=== PATIENT | male | born 1985 | race Caucasian/White ===

== ENCOUNTER 2016-09-24 23:54 | Emergency (ER) | payer SELFPAY ==
--- NOTE | 2016-09-25 01:06 | ED ORDER SUMMARY ---
..... Patient: ITZ VALLEJO OrderSheet [facility] VisitID: [id number] [address] [place] [address] 31y, M Registration Date/Time: 09/24/2016 ORDER SHEET Weight: 113.3 kg (stated) Allergies: No Known Drug Allergy GENERAL ORDERS: MEDICATION ORDERS: Lidocaine Injection 2 % (soln) (NOW, place at bedside) (00:47 09/25/2016 Anh FloresNCristofer verbal order read back to Laura KELLY) (0:47 JDeSanam R.N.) Tdap IM 0.5 mL (NOW, per protocol) (01:04 09/25/2016 Anh Davis verbal order read back to Laura KELLY) (Ack 1:04 JDeKaleya R.N.) (1:14 JDeElena R.N.) IV FLUIDS: ORDER SHEET NOTES: [Electronically signed by Nitish Pretty R.N. (09/25/2016)] [Electronically signed by Joaquin Lopez MD (23:35 09/27/2016)] [Electronically locked/signed by Nitish Pretty R.N. (09/25/2016)]
--- NOTE | 2016-09-25 01:06 | ED NURSING NOTES ---
Clinical Report - Nurses [facility] [address] [place] [address] 09/24/2016 23:55 Patient: ITZ VALLEJO TRIAGE Triage time 00:03. Acuity: LEVEL 4. Chief Complaint: INJURY TO THE LEFT FOREARM. Alert. No acute distress. SEPSIS SCREEN: Sepsis Screen: negative. Negative (no infection suspected/documented). --00:07 Nitish Pretty R.N. 00:03 09/25/16. BP: 136/82 (regular adult cuff) taken on the right arm, via an automated monitor, while lying. HR: 105 (normal rate). RR: 16 (regular, unlabored and normal). O2 saturation: 96% on room air. Temp: 99.3 F (oral). Pain level now: 10/14. --00:07 Nitish Pretty R.N. Weight: 113.3 kg stated. Height/Length: 67 inches Per Patient. BMI: 39.2. --00:04 Nitish Pretty R.N. Medications None. --00:04 Nitish Pretty R.N. Medication/allergy information source: the patient. --00:07 Nitish Pretty R.N. Allergies No Known Drug Allergy. --00:04 Nitish Pretty R.N. History Arrived by private vehicle. Historian: patient. Accompanied by friend. Primary physician (None). This occurred just prior to arrival. He sustained a laceration from a knife (Working on car, started cutting toward him, cut arm open.). 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 PAST MEDICAL HX: Tetanus immunization status is not up-to-date. SOCIAL HX: Current every day light tobacco smoker (cigarette)- less than 1/2 a pack per day. History of occasional drug use: marijuana. No alcohol use. He has not traveled outside the [place] The patient was not exposed to MRSA. ABUSE ASSESSMENT: Abuse assessment: The patient was asked "Do you feel safe in your home?" and "Has anyone hurt you or threatened to hurt you?". No report of abuse. SELF HARM ASSESSMENT: A self harm assessment was performed. The patient answered "no" to the question "Do you have thoughts of harming or killing yourself?" and "Have you recently had thoughts about harming or killing others?". FALL RISK ASSESSMENT: Fall risk assessment completed. No fall risk identified. NUTRITIONAL RISK ASSESSMENT: The nutritional risk assessment revealed no deficiencies. LEARNING NEEDS ASSESSMENT: The learning needs assessment revealed no barriers. FUNCTIONAL ASSESSMENT: Functional assessment performed: wears glasses- this visual impairment is an ongoing problem. SKIN INTEGRITY ASSESSMENT: Skin integrity risk assessment completed. No skin integrity risk identified. --00:07 Nitish Pretty R.N. PROBLEMS: Irritable Bowel Syndrome. --00:05 Nitish Pretty R.N. Assessment GENERAL / NEURO / PSYCH: Alert. Oriented X 4. Appears in no acute distress. Chelsea Coma Scale: 15- eyes open spontaneously (4); best verbal response- oriented x 4 (5); best motor response- obeys commands (6). Patient appears calm and cooperative. RESPIRATORY: No respiratory distress. Respirations not labored. SKIN: Skin is warm and dry. --00:07 Nitish Pretty R.N. Interventions ID band on patient. To treatment room. No allergy band on patient. --00:07 Nitish Pretty R.N. PHYSICAL ASSESSMENT Ambulatory to room. GENERAL / NEURO / PSYCH: Oriented X 4. Alert. Appears in no acute distress. RESPIRATORY: No respiratory distress. Respirations not labored. EXTREMITIES: Capillary refill is less than 2 seconds in the extremities. Extremity pulses are within normal limits. Neuro-vascular status intact to the extremity. Left forearm: tenderness, swelling and deep 2.5 cm laceration with controlled bleeding. SKIN: Skin intact. Skin is warm and dry. --00:09 Nitish Pretty R.N. NURSING PROGRESS NOTES The initial plan of care for this patient has been created This plan of care was discussed with the patient. Reassurance given to the patient. Two patient identifiers checked. Call light placed in reach. Side rails up x 1. Bed placed in lowest position. Brakes of bed on. Patient ready for evaluation- ED physician and PLUGGER notified. --00:08 Nitish Pretty R.N. 00:47 09/25/2016 Lidocaine Injection Injectable 2 % given. Allergies verified and confirmed 5 rights. (Administered by Dr. Lopez). --00:47 Nitish Pretty R.N. 01:14 09/25/2016 TDAP IM 0.5 mL given. (Lot#: [id number], expiration date: 02/11/2018). Given in the left deltoid. Allergies verified and confirmed 5 rights. Vaccine information statement provided to the patient. --01:14 Nitish Pretty R.N. 01:14 09/25/2016 Lidocaine Injection Response: no adverse reaction. --01:14 Nitish Pretty R.N. WOUND REPAIR: Wound repair performed by ED physician. The wound is located on the left forearm. Preparation: with 2% lidocaine. Procedure: wound repaired with sutures. Post-procedure: he was stable, no complications, bleeding controlled and neuro-vascular status intact distal to wound. Applied clean dressing consisting of 4x4 gauze, following the application of antibiotic ointment (bacitracin). Secured with tape and kerlix. --01:25 Nitish Pretty R.N. DISPOSITION / DISCHARGE Departure time: 01:15. --01:15 Nitish Pretty R.N. 01:15. Condition at departure: stable. The goals identified in the patient's plan of care were met. No learning barriers present. Discharge instructions provided and reviewed with the patient. Reviewed referral to a primary care physician (Pamphlet anthony MARTINEZ given to pt for f/u and stich removal.). Patient verbalized understanding. Written instructions provided in Burundian. ( Itz verbalizes understanding of all d/c instructions including wound care and f/u for wound check. He has no questions and voices no concerns at this time.). The patient was discharged by the physician. He was discharged home and accompanied by hvac manager. He left the Emergency Department ambulatory and via private vehicle. Sorting Supervisor driving. CHELSEA COMA SCORE: Chelsea Coma Scale: 15- eyes open spontaneously (4); best verbal response- oriented x 4 (5); best motor response- obeys commands (6). --01:27 Ntiish Pretty R.N. 01:10 09/25/16. BP: 134/81 (regular adult cuff) taken on the left arm, via an automated monitor, while lying. HR: 97 (normal rate). RR: 14 (regular, unlabored and normal). O2 saturation: 98% on room air. Temp: 98.3 F (oral). Pain level now: 07/14. --01:27 Nitish Pretty R.N. Locked/Released at 09/25/2016 1:28 by Nitish Pretty R.N.
--- NOTE | 2016-09-25 01:06 | ED CLINICAL REPORT ---
Clinical Report - Physicians/Mid Levels [facility] [address] [place] [address] 09/24/2016 23:55 Patient: ITZ VALLEJO Time Seen: 00:28 Sep 25 2016. Arrived- By private vehicle. Historian- patient. CPT: ER phys charges level 3 plus (#[id number]). 2.6-7.5 cm simple scalp, neck,A (#[id number]). HISTORY OF PRESENT ILLNESS Chief Complaint: Injury to the left arm and Chief Complaint- This occurred just prior to arrival. He sustained a laceration from a knife (Working on car, started cutting toward him, cut arm open.). The injury happened just prior to arrival. Occurred at home. The patient sustained a laceration from a knife. Patient is experiencing moderate pain. No other injury. REVIEW OF SYSTEMS The patient sustained a laceration. No swelling, tingling, numbness, weakness or suspected foreign body. All systems otherwise negative, except as recorded above. PAST HISTORY Irritable Bowel Syndrome. Medications: None. Allergies: No Known Drug Allergy. SOCIAL HISTORY Heavy tobacco smoker (cigarette)- less than 1 pack per day. History of drug use: marijuana. No alcohol use. ADDITIONAL NOTES The nursing notes have been reviewed. PHYSICAL EXAM Vital Signs: 09/25/2016 00:03 BP: 136/82. HR: 105. RR: 16. O2 saturation: 96%. Temp: 99.3 F. Pain level now: 6/10. Appearance: Alert. Skin: Skin warm. Normal skin color. Extremities: Left forearm: moderate tenderness and subcutaneous laceration located in the mid forearm. SEE LACERATION PROCEDURE NOTE. Neurovascular intact distally. No deformity. Extremities otherwise negative. Neuro, Vascular and Tendons: Vascular status intact. Sensation intact. Motor intact. Tendon function intact. Neuro: Oriented X 3. No motor deficit. No sensory deficit. Reflexes normal. PROGRESS AND PROCEDURES Laceration Repair: Location: left forearm. Length: 7 cm. Complexity: simple (local anesthesia used and sutured). Wound depth/shape- subcutaneous and linear. Wound is clean. Distal neuro/vascular/tendon status normal. Tendon examined. No tendon deficit or laceration. Local anesthesia provided using 2% lidocaine with bicarb. Prepped with Hibiclens. Wound cleansed and irrigated extensively with normal saline. Closure of skin: interrupted 4-0 (10 sutures). Post-procedure: he is stable and there are no complications. Bleeding is controlled and neuro-vascular status is intact distal to the wound. Dressing applied. Tetanus immunization given. Estimated blood loss: 3 mL. Patient/family counseled. Disposition: Discharged. Condition: stable and improved. CLINICAL IMPRESSION Single deep laceration to the left forearm.No foreign body present. INSTRUCTIONS Protect wound and keep wound area clean. Change dressing twice daily. Keep wounds dry. You may wash wounds briefly, then dry. Apply neosporin twice daily. Sutures should be removed in ten days. Warnings: TETANUS: You were given a tetanus shot during your visit. Make a note for future reference. GENERAL WARNINGS: Return or contact your physician immediately if your condition worsens or changes unexpectedly, if not improving as expected, or if other problems arise. OTC Medications: Acetaminophen (available over the counter): take according to label instructions. Follow-up: Follow up with your doctor in ten days for suture removal. Call for an appointment. Understanding of the discharge instructions verbalized by patient. Discharge instructions reviewed with and understanding was verbalized by neighbor. (Electronically signed by Joaquin Lopez MD 09/27/2016 23:35)
--- NOTE | 2016-09-25 01:06 | ED NURSING NOTES ---
Clinical Report - Nurses [facility] [address] [place] [address] 09/24/2016 23:55 Patient: ITZ VALLEJO TRIAGE Triage time 00:03. Acuity: LEVEL 4. Chief Complaint: INJURY TO THE LEFT FOREARM. Alert. No acute distress. SEPSIS SCREEN: Sepsis Screen: negative. Negative (no infection suspected/documented). --00:07 Nitish Pretty R.N. 00:03 09/25/16. BP: 136/82 (regular adult cuff) taken on the right arm, via an automated monitor, while lying. HR: 105 (normal rate). RR: 16 (regular, unlabored and normal). O2 saturation: 96% on room air. Temp: 99.3 F (oral). Pain level now: 10/14. --00:07 Nitish Pretty R.N. Weight: 113.3 kg stated. Height/Length: 67 inches Per Patient. BMI: 39.2. --00:04 Nitish Pretty R.N. Medications None. --00:04 Nitish Pretty R.N. Medication/allergy information source: the patient. --00:07 Nitish Pretty R.N. Allergies No Known Drug Allergy. --00:04 Nitish Pretty R.N. History Arrived by private vehicle. Historian: patient. Accompanied by friend. Primary physician (None). This occurred just prior to arrival. He sustained a laceration from a knife (Working on car, started cutting toward him, cut arm open.). 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 PAST MEDICAL HX: Tetanus immunization status is not up-to-date. SOCIAL HX: Current every day light tobacco smoker (cigarette)- less than 1/2 a pack per day. History of occasional drug use: marijuana. No alcohol use. He has not traveled outside the [place] The patient was not exposed to MRSA. ABUSE ASSESSMENT: Abuse assessment: The patient was asked "Do you feel safe in your home?" and "Has anyone hurt you or threatened to hurt you?". No report of abuse. SELF HARM ASSESSMENT: A self harm assessment was performed. The patient answered "no" to the question "Do you have thoughts of harming or killing yourself?" and "Have you recently had thoughts about harming or killing others?". FALL RISK ASSESSMENT: Fall risk assessment completed. No fall risk identified. NUTRITIONAL RISK ASSESSMENT: The nutritional risk assessment revealed no deficiencies. LEARNING NEEDS ASSESSMENT: The learning needs assessment revealed no barriers. FUNCTIONAL ASSESSMENT: Functional assessment performed: wears glasses- this visual impairment is an ongoing problem. SKIN INTEGRITY ASSESSMENT: Skin integrity risk assessment completed. No skin integrity risk identified. --00:07 Nitish Pretty R.N. PROBLEMS: Irritable Bowel Syndrome. --00:05 Nitish Pretty R.N. Assessment GENERAL / NEURO / PSYCH: Alert. Oriented X 4. Appears in no acute distress. Chelsea Coma Scale: 15- eyes open spontaneously (4); best verbal response- oriented x 4 (5); best motor response- obeys commands (6). Patient appears calm and cooperative. RESPIRATORY: No respiratory distress. Respirations not labored. SKIN: Skin is warm and dry. --00:07 Nitish Pretty R.N. Interventions ID band on patient. To treatment room. No allergy band on patient. --00:07 Nitish Pretty R.N. PHYSICAL ASSESSMENT Ambulatory to room. GENERAL / NEURO / PSYCH: Oriented X 4. Alert. Appears in no acute distress. RESPIRATORY: No respiratory distress. Respirations not labored. EXTREMITIES: Capillary refill is less than 2 seconds in the extremities. Extremity pulses are within normal limits. Neuro-vascular status intact to the extremity. Left forearm: tenderness, swelling and deep 2.5 cm laceration with controlled bleeding. SKIN: Skin intact. Skin is warm and dry. --00:09 Nitish Pretty R.N. NURSING PROGRESS NOTES The initial plan of care for this patient has been created This plan of care was discussed with the patient. Reassurance given to the patient. Two patient identifiers checked. Call light placed in reach. Side rails up x 1. Bed placed in lowest position. Brakes of bed on. Patient ready for evaluation- ED physician and SURGICAL APPLIANCES SALESPERSON notified. --00:08 Nitish Pretty R.N. 00:47 09/25/2016 Lidocaine Injection Injectable 2 % given. Allergies verified and confirmed 5 rights. (Administered by Dr. Lopez). --00:47 Nitish Pretty R.N. 01:14 09/25/2016 TDAP IM 0.5 mL given. (Lot#: [id number], expiration date: 02/11/2018). Given in the left deltoid. Allergies verified and confirmed 5 rights. Vaccine information statement provided to the patient. --01:14 Nitish Pretty R.N. 01:14 09/25/2016 Lidocaine Injection Response: no adverse reaction. --01:14 Nitish Pretty R.N. WOUND REPAIR: Wound repair performed by ED physician. The wound is located on the left forearm. Preparation: with 2% lidocaine. Procedure: wound repaired with sutures. Post-procedure: he was stable, no complications, bleeding controlled and neuro-vascular status intact distal to wound. Applied clean dressing consisting of 4x4 gauze, following the application of antibiotic ointment (bacitracin). Secured with tape and kerlix. --01:25 Nitish Pretty R.N. DISPOSITION / DISCHARGE Departure time: 01:15. --01:15 Nitish Pretty R.N. 01:15. Condition at departure: stable. The goals identified in the patient's plan of care were met. No learning barriers present. Discharge instructions provided and reviewed with the patient. Reviewed referral to a primary care physician (Pamphlet anthony MARTINEZ given to pt for f/u and stich removal.). Patient verbalized understanding. Written instructions provided in Palauan. ( Itz verbalizes understanding of all d/c instructions including wound care and f/u for wound check. He has no questions and voices no concerns at this time.). The patient was discharged by the physician. He was discharged home and accompanied by policy advisor. He left the Emergency Department ambulatory and via private vehicle. Home Housekeeper driving. CHELSEA COMA SCORE: Chelsea Coma Scale: 15- eyes open spontaneously (4); best verbal response- oriented x 4 (5); best motor response- obeys commands (6). --01:27 Nitish Pretty R.N. 01:10 09/25/16. BP: 134/81 (regular adult cuff) taken on the left arm, via an automated monitor, while lying. HR: 97 (normal rate). RR: 14 (regular, unlabored and normal). O2 saturation: 98% on room air. Temp: 98.3 F (oral). Pain level now: 07/14. --01:27 Nitish Pretty R.N. Locked/Released at 09/25/2016 1:28 by Nitish Pretty R.N.
--- NOTE | 2016-09-25 01:06 | ED CLINICAL REPORT ---
Clinical Report - Physicians/Mid Levels [facility] [address] [place] [address] 09/24/2016 23:55 Patient: ITZ VALLEJO Time Seen: 00:28 Sep 25 2016. Arrived- By private vehicle. Historian- patient. CPT: ER phys charges level 3 plus (#[id number]). 2.6-7.5 cm simple scalp, neck,A (#[id number]). HISTORY OF PRESENT ILLNESS Chief Complaint: Injury to the left arm and Chief Complaint- This occurred just prior to arrival. He sustained a laceration from a knife (Working on car, started cutting toward him, cut arm open.). The injury happened just prior to arrival. Occurred at home. The patient sustained a laceration from a knife. Patient is experiencing moderate pain. No other injury. REVIEW OF SYSTEMS The patient sustained a laceration. No swelling, tingling, numbness, weakness or suspected foreign body. All systems otherwise negative, except as recorded above. PAST HISTORY Irritable Bowel Syndrome. Medications: None. Allergies: No Known Drug Allergy. SOCIAL HISTORY Heavy tobacco smoker (cigarette)- less than 1 pack per day. History of drug use: marijuana. No alcohol use. ADDITIONAL NOTES The nursing notes have been reviewed. PHYSICAL EXAM Vital Signs: 09/25/2016 00:03 BP: 136/82. HR: 105. RR: 16. O2 saturation: 96%. Temp: 99.3 F. Pain level now: 6/10. Appearance: Alert. Skin: Skin warm. Normal skin color. Extremities: Left forearm: moderate tenderness and subcutaneous laceration located in the mid forearm. SEE LACERATION PROCEDURE NOTE. Neurovascular intact distally. No deformity. Extremities otherwise negative. Neuro, Vascular and Tendons: Vascular status intact. Sensation intact. Motor intact. Tendon function intact. Neuro: Oriented X 3. No motor deficit. No sensory deficit. Reflexes normal. PROGRESS AND PROCEDURES Laceration Repair: Location: left forearm. Length: 7 cm. Complexity: simple (local anesthesia used and sutured). Wound depth/shape- subcutaneous and linear. Wound is clean. Distal neuro/vascular/tendon status normal. Tendon examined. No tendon deficit or laceration. Local anesthesia provided using 2% lidocaine with bicarb. Prepped with Hibiclens. Wound cleansed and irrigated extensively with normal saline. Closure of skin: interrupted 4-0 (10 sutures). Post-procedure: he is stable and there are no complications. Bleeding is controlled and neuro-vascular status is intact distal to the wound. Dressing applied. Tetanus immunization given. Estimated blood loss: 3 mL. Patient/family counseled. Disposition: Discharged. Condition: stable and improved. CLINICAL IMPRESSION Single deep laceration to the left forearm.No foreign body present. INSTRUCTIONS Protect wound and keep wound area clean. Change dressing twice daily. Keep wounds dry. You may wash wounds briefly, then dry. Apply neosporin twice daily. Sutures should be removed in ten days. Warnings: TETANUS: You were given a tetanus shot during your visit. Make a note for future reference. GENERAL WARNINGS: Return or contact your physician immediately if your condition worsens or changes unexpectedly, if not improving as expected, or if other problems arise. OTC Medications: Acetaminophen (available over the counter): take according to label instructions. Follow-up: Follow up with your doctor in ten days for suture removal. Call for an appointment. Understanding of the discharge instructions verbalized by patient. Discharge instructions reviewed with and understanding was verbalized by neighbor. (Electronically signed by Joaquin Lopez MD 09/27/2016 23:35)
--- NOTE | 2016-09-25 01:06 | ED ORDER SUMMARY ---
..... Patient: ITZ VALLEJO OrderSheet [facility] VisitID: [id number] [address] [place] [address] 31y, M Registration Date/Time: 09/24/2016 ORDER SHEET Weight: 113.3 kg (stated) Allergies: No Known Drug Allergy GENERAL ORDERS: MEDICATION ORDERS: Lidocaine Injection 2 % (soln) (NOW, place at bedside) (00:47 09/25/2016 Anh FloresNCristofer verbal order read back to Laura KELLY) (0:47 JDeSanam R.N.) Tdap IM 0.5 mL (NOW, per protocol) (01:04 09/25/2016 Anh Davis verbal order read back to Laura KELLY) (Ack 1:04 JDeKaleya R.N.) (1:14 JDeElena R.N.) IV FLUIDS: ORDER SHEET NOTES: [Electronically signed by Nitish Pretty R.N. (09/25/2016)] [Electronically signed by Joaquin Lopez MD (23:35 09/27/2016)] [Electronically locked/signed by Nitish Pretty R.N. (09/25/2016)]
--- NOTE | 2016-09-27 23:35 | ED MAR SUMMARY ---
..... Medication Administration Record [facility] [address] [place] [address] Patient: ITZ VALLEJO Visit ID: [id number] 31y, M Weight: 113.3 kg Height/Length: 67 in BMI: 39.2 ALLERGIES: No Known Drug Allergy Given 00:47 09/25/2016 Nitsih Pretty, RCristoferNCristofer Medication Administered: LIDOCAINE [INJECTION], Dose: 2 % Injectable Injection. Medication Ordered: Lidocaine Injection 2 % (soln) (NOW, place at bedside). Given 01:14 09/25/2016 Nitish Pretty, R.N. Medication Administered: TDAP [IM], Dose: 0.5 mL IM. Medication Ordered: Tdap IM 0.5 mL (NOW, per protocol).
--- NOTE | 2016-09-27 23:35 | ED DISCHARGE INSTRUCTIONS ---
Patient: ITZ VALLEJO General Instructions [facility] VisitID: [id number] [place] [address] 31y, M Registration Date/Time: 09/24/2016 Single deep laceration to the left forearm.No foreign body present. INSTRUCTIONS Protect wound and keep wound area clean. Change dressing twice daily. Keep wounds dry. You may wash wounds briefly, then dry. Apply neosporin twice daily. Sutures should be removed in ten days. Warnings: TETANUS: You were given a tetanus shot during your visit. Make a note for future reference. GENERAL WARNINGS: Return or contact your physician immediately if your condition worsens or changes unexpectedly, if not improving as expected, or if other problems arise. OTC Medications: Acetaminophen (available over the counter): take according to label instructions. Follow-up: Follow up with your doctor in ten days for suture removal. Call for an appointment. Understanding of the discharge instructions verbalized by patient. Discharge instructions reviewed with and understanding was verbalized by neighbor. ADDITIONAL INFORMATION Laceration (All Closures) Alaceration is a cut through the skin. This will usually require stitches (sutures) or breonna if it is deep. Minor cuts may be treated with a surgical tape closure orskin glue. Home care The following guidelines will help you care for your laceration at home: Extremity, face, or trunk wounds Keep the wound clean and dry. If a bandage was applied and it becomes wet or dirty, replace it. Otherwise, leave it in place for the first 24 hours. If stitches or breonna were used, clean the wound daily. After removing the bandage, wash the area with soap and water. Use a wet cotton swab to loosen and remove any blood or crust that forms. The doctor may prescribe an antibiotic cream or ointment to prevent infection. Do not stop taking this medication until you have finished the prescribed course or the doctor tells you to stop. The doctor may also prescribe medications for pain. Follow the doctors instructions for taking these medications. You may remove the bandage to shower as usual after the first 24 hours, but do not soak the area in water (no swimming) until the stitches or breonna are removed. If surgical tape was used, keep the area clean and dry. If it becomes wet, blot it dry with a towel. If skin glue was used, do not scratch, rub, or pick at the adhesive film. Do not place tape directly over the film. Do not apply liquid, ointment, or creams to the wound while the film is in place. Do not clean the wound with peroxide and do not apply ointments. Avoid activities that cause heavy sweating until the film has fallen off. Protect the wound from prolonged exposure to sunlight or tanning lamps. You may shower as usual but do not soak the wound in water (no baths or swimming). The film will fall off by itself in 510 days. Scalp wounds During the first two days, you may carefully rinse your hair in the shower to remove blood, glass or dirt particles. After two days, you may shower and shampoo your hair normally. Do not soak your scalp in the tub or go swimming until the stitches or breonna have been removed. Talk with your doctor before applying any antibiotic ointment to the wound. Mouth wounds Eat soft foods to reduce pain. If the cut is inside of your mouth, clean by rinsing after each meal and at bedtime with a mixture of equal parts water and hydrogen peroxide (do not swallow!). Or, you can use a cotton swab to directly apply hydrogen peroxide onto the cut. Mouth wounds can be painful when eating. You may use an xewc-[id number] local numbing solution for pain relief. If this is not available, you may use any numbing solution for teething babies. You may apply this directly to the sores with a cotton-tip swab or with your finger. Follow-up care Follow up with your health care provider. Most skin wounds heal within ten days. Mouth and facial wounds heal within five days. However, even with proper treatment, a wound infection may sometimes occur. Therefore, you should check the wound daily for signs of infection listed below. Stitches should be removed from the face within five days; stitches and breonna should be removed from other parts of the body within 714 days. If dissolving stitches were used in the mouth, these will fall out or dissolve without the need for removal. If tape closures were used, remove them yourself if they have not fallen off after 7 days. Ifskin glue was used, the film will fall off by itself in 510 days. When to seek medical care Get prompt medical attention if any of these occur: Bleeding not controlled by direct pressure Signs of infection, including increasing pain in the wound, increasing wound redness or swelling, or pus coming from the wound Fever of 100.4F (38C) or higher, or as directed by your health care provider Stitches or breonna come apart or fall out or surgical tape falls off before 7 days Wound edges re-open Laceration, Extremity (Sutures, Davidson, Or Tape) A laceration is a cut through the skin. This will usually require stitches (sutures) or breonna if it is deep. Minor cuts may be treated with surgical tape closures. Home care The following guidelines will help you care for your laceration at home: Keep the wound clean and dry. If a bandage was applied and it becomes wet or dirty, replace it. Otherwise, leave it in place for the first 24 hours, then change it once a day or as directed. If stitches or breonna were used, clean the wound daily: After removing the bandage, wash the area with soap and water. Use a wet cotton swab to loosen and remove any blood or crust that forms. After cleaning, keep the wound clean and dry. Talk with your doctor before applying any antibiotic ointment to the wound. Reapply the bandage. You may remove the bandage to shower as usual after the first 24 hours, but do not soak the area in water (no swimming) until the stitches or breonna are removed. If surgical tape closures were used, keep the area clean and dry. If it becomes wet, blot it dry with a towel. The doctor may prescribe an antibiotic cream or ointment to prevent infection. Do not stop taking this medication until you have finished the prescribed course or the doctor tells you to stop. The doctor may also prescribe medications for pain. Follow the doctors instructions for taking these medications. If you have chronic liver or kidney disease or ever had a stomach ulcer or GI bleeding, talk with your doctor before using these medicines. Follow-up care Follow up with your health care provider. Most skin wounds heal within ten days. However, an infection may sometimes occur despite proper treatment. Therefore, check the wound daily for the signs of infection listed below. Stitches and breonna should be removed within 714 days. If surgical tape closures were used, you may remove them after 10 days, if they have not fallen off by then. Notify your doctor if you notice persistent numbness or weakness in the injured extremity. (Note:A radiologist will review any X-rays that were taken. We will notify you of any new findings that may affect your care.) When to seek medical care Get prompt medical attention if any of these occur: Increasing pain in the wound Redness, swelling, or pus coming from the wound Fever of 100.4F (38C) or higher, or as directed by your health care provider If stitches or breonna come apart or fall out before your next appointment If the surgical tape closures fall off within seven days, or the wound edges re-open Bleeding not controlled by direct pressure Bandage Change If the bandage becomes wet or dirty, replace it. Otherwise, leave it in place for the first 24 hours. Then once a day: After removing the bandage, wash the area with soap and water. Use a wet cotton swab to loosen and remove any blood or crust that forms on the wound. After cleaning, apply a thin layer of antibiotic ointment or cream. Reapply the bandage. You may shower as usual after the first 24 hours. If the bandage is on an arm or leg, cover it with a plastic bag rubber banded at both ends before showering. No tub baths or swimming until the bandage is removed and the wound healed (at least 7 days). Laceration, Extremity (Sutures, Breonna, Or Tape) A laceration is a cut through the skin. This will usually require stitches (sutures) or breonna if it is deep. Minor cuts may be treated with surgical tape closures. Home care The following guidelines will help you care for your laceration at home: Keep the wound clean and dry. If a bandage was applied and it becomes wet or dirty, replace it. Otherwise, leave it in place for the first 24 hours, then change it once a day or as directed. If stitches or breonna were used, clean the wound daily: After removing the bandage, wash the area with soap and water. Use a wet cotton swab to loosen and remove any blood or crust that forms. After cleaning, keep the wound clean and dry. Talk with your doctor before applying any antibiotic ointment to the wound. Reapply the bandage. You may remove the bandage to shower as usual after the first 24 hours, but do not soak the area in water (no swimming) until the stitches or breonna are removed. If surgical tape closures were used, keep the area clean and dry. If it becomes wet, blot it dry with a towel. The doctor may prescribe an antibiotic cream or ointment to prevent infection. Do not stop taking this medication until you have finished the prescribed course or the doctor tells you to stop. The doctor may also prescribe medications for pain. Follow the doctors instructions for taking these medications. If you have chronic liver or kidney disease or ever had a stomach ulcer or GI bleeding, talk with your doctor before using these medicines. Follow-up care Follow up with your health care provider. Most skin wounds heal within ten days. However, an infection may sometimes occur despite proper treatment. Therefore, check the wound daily for the signs of infection listed below. Stitches and breonna should be removed within 714 days. If surgical tape closures were used, you may remove them after 10 days, if they have not fallen off by then. Notify your doctor if you notice persistent numbness or weakness in the injured extremity. (Note:A radiologist will review any X-rays that were taken. We will notify you of any new findings that may affect your care.) When to seek medical care Get prompt medical attention if any of these occur: Increasing pain in the wound Redness, swelling, or pus coming from the wound Fever of 100.4F (38C) or higher, or as directed by your health care provider If stitches or breonna come apart or fall out before your next appointment If the surgical tape closures fall off within seven days, or the wound edges re-open Bleeding not controlled by direct pressure You have been given the following additional information: Laceration, All Laceration, Extrem (Suture, Staple, Or Tape) Dressing Change Laceration, Extrem (Suture, Staple, Or Tape) (Electronically signed by Joaquin Lopez MD 09/27/2016 23:35)
--- NOTE | 2016-09-27 23:35 | ED MAR SUMMARY ---
..... Medication Administration Record [facility] [address] [place] [address] Patient: ITZ VALLEJO Visit ID: [id number] 31y, M Weight: 113.3 kg Height/Length: 67 in BMI: 39.2 ALLERGIES: No Known Drug Allergy Given 00:47 09/25/2016 Nitish Pretty, RCristoferNCristofer Medication Administered: LIDOCAINE [INJECTION], Dose: 2 % Injectable Injection. Medication Ordered: Lidocaine Injection 2 % (soln) (NOW, place at bedside). Given 01:14 09/25/2016 Nitish Pretty, R.N. Medication Administered: TDAP [IM], Dose: 0.5 mL IM. Medication Ordered: Tdap IM 0.5 mL (NOW, per protocol).
--- NOTE | 2016-09-27 23:36 | ED MED RECONCILIATION SUMMARY ---
Patient: ITZ VALLEJO Medication Reconciliation Report [facility] VisitID: [id number] [address] [place] [address] 31y, M Registration Date/Time: 09/24/2016 Weight: 113.3 kg Height/Length: 67 in. BMI: 39.2 ALLERGIES: No Known Drug Allergy The patient's Home Medications are listed below: NONE. The source(s) of the original Home Medication information: patient The following Medications were given to the patient in the Emergency Department: Lidocaine [Injection] Injection 2 %, administered: 09/25/2016 12:47:00 AM TDAP [IM] IM 0.5 mL, administered: 09/25/2016 1:14:00 AM The following Medications were prescribed to the patient: Acetaminophen (available over the counter): take according to label instructions. -- Joaquin Lopez MD
--- NOTE | 2016-09-27 23:36 | ED MED RECONCILIATION SUMMARY ---
Patient: ITZ VALLEJO Medication Reconciliation Report [facility] VisitID: [id number] [address] [place] [address] 31y, M Registration Date/Time: 09/24/2016 Weight: 113.3 kg Height/Length: 67 in. BMI: 39.2 ALLERGIES: No Known Drug Allergy The patient's Home Medications are listed below: NONE. The source(s) of the original Home Medication information: patient The following Medications were given to the patient in the Emergency Department: Lidocaine [Injection] Injection 2 %, administered: 09/25/2016 12:47:00 AM TDAP [IM] IM 0.5 mL, administered: 09/25/2016 1:14:00 AM The following Medications were prescribed to the patient: Acetaminophen (available over the counter): take according to label instructions. -- Joaquin Lopez MD
== END 2016-09-25 00:15 | disposition home or self-care (01) ==
LOC: ED SRH 23:54
DX: S51.812A Laceration without foreign body of left forearm, initial encounter (principal); W26.0XXA Contact with knife, initial encounter; Y93.89 Activity, other specified; Y92.019 Unspecified place in single-family (private) house as the place of occurrence of the external cause; Y99.9 Unspecified external cause status; F17.210 Nicotine dependence, cigarettes, uncomplicated; Z23 Encounter for immunization